=== PATIENT | male | born 1995 | race Native Hawaiian/Other Pacific Islander ===

== ENCOUNTER 2020-03-17 10:42 | Emergency (ER) | payer SELFPAY ==
[~2020-03-17] VITALS: Ht 188 cm; Wt 149.1 kg
[2020-03-17 11:02] VITALS: BP 120/80; PULSE 90; TEMP 98.1
[2020-03-17] MEDS ORDERED: PREDNISONE20 MG PO (12:42)
== END 2020-03-17 12:50 | disposition home or self-care (01) ==
LOC: COL.ER 10:42 → EDBD 10:44 → COL.ER 12:50
DX: T78.3XXA Angioneurotic edema, initial encounter (principal); F17.210 Nicotine dependence, cigarettes, uncomplicated
CPT/HCPCS: J7512

== ENCOUNTER 2021-04-07 21:55 | Observation (INO) | payer SELFPAY ==
[~2021-04-07] VITALS: Ht 185.4 cm; Wt 127.3 kg
[~2021-04-07 21:55] MED LIST: PREDNISONE20 MG PO
[2021-04-07 22:42] LABS: BASO # 0.1 (0.0-0.2); BASO % 0.6 % (0.0-2.0); EOS # 0.1 (0.0-0.7); EOS % 0.7 % (0-4.0); GRAN # 10.1 (1.4-6.5); GRAN % 73.6 % (42.2-75.2); HEMATOCRIT 49.3 % (42.0-52.0); HEMOGLOBIN 15.9 g/dl (13.5-18.0); LYMPH # 2.6 (1.2-3.4); LYMPH % 19.1 % (20.0-51.0); MEAN CELL VOLUME 84 fl (80.0-100.0); MEAN CORPUSCULAR HEMOGLOBIN 27 pg (27.0-31.0); MEAN CORPUSCULAR HGB CONC 32 g/dl (33.0-37.0); MEAN PLATELET VOLUME 10.8 fl (7.4-10.4); MONO # 0.8 (0.1-0.6); MONO % 5.6 % (1.7-9.3); PLATELET COUNT 393 K/mm3 (130-400); RED BLOOD COUNT 5.84 M/mm3 (4.20-5.60); REDCELL DISTRIBUTION WIDTH-CV 12.5 % (11.5-14.5)
[2021-04-07 22:53] LABS: ALANINE AMINOTRANSFERASE 21 U/L (4-49); ALKALINE PHOSPHATASE 79 U/L (50-136); ANION GAP 10 mmol/L (7-16); AST,SGOT 27 U/L (15-37); BILIRUBIN,TOTAL 0.4 mg/dL (0.0-1.0); BLOOD UREA NITROGEN 13 mg/dL (9-20); CALCIUM 9.7 mg/dL (8.4-10.2); CARBON DIOXIDE 22 mmol/L (22-30); CHLORIDE 109 mmol/L (98-107); CREATINE KINASE 224 U/L (55-170); CREATININE, serum 1.42 (0.66-1.25); GLUCOSE 105 mg/dL (74-106); POTASSIUM 3.9 mmol/L (3.4-5.0); SODIUM 141 mmol/L (137-145)
[2021-04-07 23:09] LABS: TROPONIN-I < 0.012 ng/mL (0.000-0.035)
[2021-04-08 03:04] LABS: BASO # 0.1 (0.0-0.2); BASO % 0.5 % (0.0-2.0); EOS # 0.1 (0.0-0.7); EOS % 0.6 % (0-4.0); GRAN # 8.8 (1.4-6.5); GRAN % 69.9 % (42.2-75.2); HEMATOCRIT 42.9 % (42.0-52.0); LYMPH # 2.9 (1.2-3.4); LYMPH % 23.4 % (20.0-51.0); MEAN CELL VOLUME 86 fl (80.0-100.0); MEAN CORPUSCULAR HEMOGLOBIN 27 pg (27.0-31.0); MEAN CORPUSCULAR HGB CONC 32 g/dl (33.0-37.0); MEAN PLATELET VOLUME 11.6 fl (7.4-10.4); MONO # 0.6 (0.1-0.6); MONO % 5.1 % (1.7-9.3); PLATELET COUNT 347 K/mm3 (130-400); REDCELL DISTRIBUTION WIDTH-CV 12.6 % (11.5-14.5)
[2021-04-08 03:06] LABS: HEMOGLOBIN 13.7 g/dl (13.5-18.0)
[2021-04-08 03:09] LABS: MAGNESIUM 1.9 mg/dL (1.6-2.3); PHOSPHOROUS 3.3 mg/dL (2.5-4.5)
[2021-04-08 03:45] LABS: TSH w REFLEX 0.85 uIU/mL (0.465-4.680)
[2021-04-08 04:05] LABS: COLLECTION METHOD CLEAN CATCH
[2021-04-08 04:20] LABS: PH 5 (5-8); SQUAMOUS EPITHELIAL None Seen /hpf; URINE APPEARANCE Hazy; URINE BACTERIA None Seen /hpf; URINE BILIRUBIN Negative (NEGATIVE); URINE BLOOD Negative (NEGATIVE); URINE COLOR Yellow; URINE GLUCOSE Negative (NEGATIVE); URINE KETONE Negative (NEGATIVE); URINE LEUKOCYTE ESTERASE Negative (NEGATIVE); URINE NITRATE Negative (NEGATIVE); URINE PROTEIN(semi-quant) Negative (NEGATIVE); URINE RBC 20-50 /hpf; URINE UROBILINOGEN Negative (NEGATIVE)
[2021-04-08 04:22] LABS: TRICYCLIC ANTIDEPRESS URINE NEGATIVE
[2021-04-08 05:34] LABS: CALCIUM 8.5 mg/dL (8.4-10.2); CREATININE, serum 0.9 (0.66-1.25); POTASSIUM 3.6 mmol/L (3.4-5.0)
[2021-04-08 05:51] LABS: TROPONIN-I 0.675 ng/mL (0.000-0.035)
[2021-04-08 08:01] VITALS: BP 115/70; PULSE 80; TEMP 97.8
--- NOTE | 2021-04-08 08:08 | NUR ---
Pt admitted to medical unit rm 315 from ED via cart, A&O x 4, denies pain or shortness of breath. VSS. Physiacl assessment unremarkable. IVF's infusing per orders through right AC site without s/s of complications. Pt oriented to room and POC. No further needs reported. Call light in reach.
--- NOTE | 2021-04-08 10:05 | NUR ---
Initial visit; Patient thanked Digital Account Supervisor for looking in on him and offering Spiritual Care.
[2021-04-08 11:20] VITALS: BP 108/58; PULSE 73; TEMP 97.6
--- NOTE | 2021-04-08 16:17 | NUR ---
SW met with the patient to discuss discharge plan. The patient lives in [place] with his girlfriend, Etienne Levy (ph#[phone]). He reports independence with ADLs and does not have any DME. The patient is listed as self pay and states that he does not have a PCP. SW discussed getting set up at [facility]. The patient then reported that he primarily speaks Somo[place], so speaks Malay, but does not fully understand it. He requested that SW contact his girlfriend. SW attempted to contact Etienne. Etienne did not answer and her phone stated that she was not taking calls at this time. SW was unable to leave a message. SW to attempt contacting her at a later time. *Discharge plan: home with girlfriend*
[2021-04-08 16:30] VITALS: BP 105/71; PULSE 80; TEMP 98.1
--- NOTE | 2021-04-08 19:00 | NUR ---
Report with SANTOS White. Pt sitting up in chair playing a game on phone, denies needs at this time. IVF's infusing per orders. Call light in reach.
--- NOTE | 2021-04-09 05:06 | NUR ---
RESTED THOUGH THE NIGHT WITHOUT INCIDENT. NO COMPLAINTS OF CHEST PAIN OR DISCOMFORT.
[2021-04-09 07:13] VITALS: BP 107/68; PULSE 69; TEMP 97.7
[2021-04-09 07:21] LABS: CALCIUM 8.7 mg/dL (8.4-10.2); CREATININE, serum 0.73 (0.66-1.25); POTASSIUM 3.5 mmol/L (3.4-5.0)
[2021-04-09 07:30] LABS: MAGNESIUM 2.1 mg/dL (1.6-2.3)
[2021-04-09 07:36] LABS: TROPONIN-I 0.142 ng/mL (0.000-0.035)
[2021-04-09] MEDS ORDERED: INDERAL 20MG20 MG PO (08:58)
--- NOTE | 2021-04-09 09:32 | NUR ---
Assessment completed, alert/oriented, vital signs stable, denies chest pain or discomfort, heart RRR/distal pulses are palpable, SR on tele, lungs CTA/ no resp.difficulty noted, plans for discharge, denies needs at this time
--- NOTE | 2021-04-09 12:01 | NUR ---
Discharge instructions discussed with the patient, insturcted to follow up with Cardiology for stress test as we have scheduled for him, instrudcted to take Propranolol as ordered PRN, script sent to pharmacy for him, IV and tele removed, 48 hr Holter monitor placed on patient prior to discharge and instructions given for returning it, he is ambulatory and I escorted him out the door
== END 2021-04-09 12:03 | disposition home or self-care (01) ==
LOC: COL.ER 21:55 → MEDICAL 04-08 02:32
PROVIDERS: Emergency Medicine; Internal Medicine; Nurse Practitioner Family; ADMIT Student in an Organized Health Care Education/Training Program
DX: I47.1 Supraventricular tachycardia (principal); I21.A1 Myocardial infarction type 2; R55 Syncope and collapse; D72.829 Elevated white blood cell count, unspecified; F17.210 Nicotine dependence, cigarettes, uncomplicated; Z20.822 Contact with and (suspected) exposure to COVID-19
CPT/HCPCS: G0378; J1650; J7030

== ENCOUNTER → 2021-04-16 | Emergency (ER) | payer SELFPAY ==
[~2021-04-16] MED LIST changes: +INDERAL 20MG20 MG PO
[2021-04-16 12:32] VITALS: BP 122/72; PULSE 87; TEMP 97.6
== END ==
LOC: COL.ER 12:03
DX: R69 Illness, unspecified (principal)

== ENCOUNTER 2021-09-15 18:26 | Emergency (ER) | payer SELFPAY ==
[~2021-09-15] VITALS: Ht 185.4 cm; Wt 113.6 kg
[2021-09-15 18:52] VITALS: TEMP 100.1
[2021-09-15 22:01] LABS: BASO % 0.4 % (0.0-2.0); EOS # 0.1 K/mm3 (0.0-0.7); EOS % 0.9 % (0.0-4.0); GRAN # 5.2 K/mm3 (1.4-6.5); GRAN % 68.6 % (42.2-75.2); HEMATOCRIT 46.3 % (42.0-52.0); HEMOGLOBIN 15.3 g/dl (13.5-18.0); LYMPH # 1.6 K/mm3 (1.2-3.4); LYMPH % 21.5 % (20.0-51.0); MEAN CELL VOLUME 82 fl (80.0-100.0); MEAN CORPUSCULAR HEMOGLOBIN 27 pg (27-31); MEAN CORPUSCULAR HGB CONC 33 g/dl (33.0-37.0); MEAN PLATELET VOLUME 10.9 fl (7.4-10.4); MONO # 0.6 K/mm3 (0.1-0.6); MONO % 8.3 % (1.7-9.3); PLATELET COUNT 272 K/mm3 (130-400); RED BLOOD COUNT 5.65 M/mm3 (4.20-5.60)
[2021-09-15 22:21] VITALS: BP 110/72; PULSE 86
[2021-09-15 22:21] LABS: BILIRUBIN,TOTAL 0.5 mg/dL (0.2-1.2); CALCIUM 8.5 mg/dL (8.4-10.2); CREATININE, serum 1.16 mg/dL (0.72-1.25)
== END 2021-09-15 23:12 | disposition home or self-care (01) ==
LOC: COL.ER 18:26
PROVIDERS: Personal Emergency Response Attendant
DX: U07.1 COVID-19 (principal)
CPT/HCPCS: J1885; J2405; J7030